=== PATIENT | male | born 1985 | race Caucasian/White ===

== ENCOUNTER 2018-06-26 18:05 | Emergency (ER) | payer MEDICAID, OTHER ==
[~2018-06-26] VITALS: Ht 175.3 cm; Wt 72.6 kg
[2018-06-26 18:29] VITALS: BP 157/92
== END 2018-06-26 22:00 | disposition home or self-care (01) ==
LOC: EDBD 18:05 → ER 18:09
DX: L03.031 Cellulitis of right toe (principal)

== ENCOUNTER 2018-06-27 00:21 | Emergency (ER) | payer MEDICAID ==
[~2018-06-27] VITALS: Ht 175.3 cm; Wt 72.6 kg
[2018-06-27 00:27] VITALS: BP 155/92
[2018-06-27 00:55] LABS: Urine Bacteria FEW /hpf (None Seen); Urine Blood Negative /uL (Negative); Urine Mucus FEW (None Seen); Urine Specific Gravity 1.018 (1.001-1.035); Urine WBC <1 /hpf (0 - 3)
[2018-06-27 01:14] LABS: Alcohol, Urine < 3.0 mg/dL (0-5); Barbiturate Scree,Urine NEGATIVE (NEGATIVE); Benzodiazephine Screen, Urine NEGATIVE (NEGATIVE); Cannabinoid Screen, Urine NEGATIVE (NEGATIVE); Cocaine Screen, Urine NEGATIVE (NEGATIVE); Opiate Scree,Urine NEGATIVE (NEGATIVE); Phencyclidine Screen, Urine NEGATIVE (NEGATIVE)
[2018-06-27 01:16] LABS: Amphetamine Screen, Urine POSITIVE (NEGATIVE)
== END 2018-06-27 05:00 | disposition left against medical advice (07) ==
LOC: ER 00:24
DX: F20.9 Schizophrenia, unspecified (principal); Z53.21 Procedure and treatment not carried out due to patient leaving prior to being seen by health care provider
CPT/HCPCS: 80307; 81001